=== PATIENT | male | born 1975 | race Native Hawaiian/Other Pacific Islander ===

== ENCOUNTER 2018-11-03 11:50 | Emergency (ER) | payer OTHER ==
[~2018-11-03] VITALS: Ht 188 cm; Wt 122.5 kg
[2018-11-03 12:00] VITALS: TEMP 99
[2018-11-03 13:50] VITALS: BP 125/81
== END 2018-11-03 13:50 | disposition home or self-care (01) ==
LOC: ED 11:50
DX: S60.042A Contusion of left ring finger without damage to nail, initial encounter (principal); W23.0XXA Caught, crushed, jammed, or pinched between moving objects, initial encounter; Y92.69 Other specified industrial and construction area as the place of occurrence of the external cause
CPT/HCPCS: 99282